=== PATIENT | male | born 1945 | race Caucasian/White ===

== ENCOUNTER → 2017-04-13 | Outpatient (CLI) | payer MEDICARE, OTHER ==
[2014-05-03 13:39] VITALS: BP 132/82
[~2017-04-13] MED LIST: BP MED; CEPHALEXIN500 M1 PO; KLOR-CON M2020 MEQ PO; METOPROLOL TART50 MG PO; NORCO 325 MG-51 TAB PO
[2017-04-13 08:17] LABS: HEMATOCRIT 48.4 % (42.0-52.0); MEAN CELL VOLUME 83 fl (78-100); MEAN CORPUSCULAR HEMOGLOBIN 26 pg (27-31); MEAN CORPUSCULAR HGB CONC 31 g/dL (33-37); PLATELET COUNT 269 K/mm3 (130-400); RED BLOOD COUNT 5.87 M/mm3 (4.20-5.60); RED CELL DISTRIBUTION WIDTH 16.6 % (11.5-14.5)
[2017-04-13 08:37] LABS: ALBUMIN 4.1 g/dL (3.5-5.0); BUN/CREATININE RATIO 15.4 (6.0-26.0); POTASSIUM 4.1 mmol/L (3.6-5.0); TOTAL BILIRUBIN 0.8 mg/dL (0.2-1.3); TOTAL PROTEIN 7.5 g/dL (6.3-8.2)
[2017-04-13 08:51] LABS: LYMPHOCYTE 74 % (20-51); MONOCYTE 4 % (3-10); NEUTROPHILS 20 % (42-75); WHITE BLOOD COUNT 22.9 K/mm3 (4.8-10.8)
== END ==
LOC: LAB 08:04
PROVIDERS: Nurse Practitioner Family
DX: C91.10 Chronic lymphocytic leukemia of B-cell type not having achieved remission (principal); I10 Essential (primary) hypertension; Z12.5 Encounter for screening for malignant neoplasm of prostate; Z13.220 Encounter for screening for lipoid disorders; Z91.041 Radiographic dye allergy status

== ENCOUNTER → 2018-12-16 | Outpatient (CLI) | payer MEDICARE, OTHER ==
[2014-05-03 13:39] VITALS: BP 132/82
[2018-12-16 11:37] LABS: HEMATOCRIT 47.6 % (42.0-52.0); HEMOGLOBIN 15.5 g/dL (13.5-18.0); MEAN CELL VOLUME 89 fl (78-100); MEAN CORPUSCULAR HEMOGLOBIN 29 pg (27-31); MEAN CORPUSCULAR HGB CONC 33 g/dL (33-37); MEAN PLATELET VOLUME 9.8 fl (7.4-10.4); PLATELET COUNT 252 K/mm3 (130-400); RED BLOOD COUNT 5.37 M/mm3 (4.20-5.60); RED CELL DISTRIBUTION WIDTH 18.3 % (11.5-14.5)
[2018-12-16 11:57] LABS: ALBUMIN 3.7 g/dL (3.4-4.8)
[2018-12-16 11:58] LABS: CALCIUM 9.2 mg/dL (8.3-10.5)
[2018-12-16 11:59] LABS: TOTAL PROTEIN 6.6 g/dL (6.2-8.1)
[2018-12-16 12:21] LABS: WHITE BLOOD COUNT 25.8 K/mm3 (4.8-10.8)
[2018-12-16 12:22] LABS: LYMPHOCYTE 70 % (20-51); MONOCYTE 3 % (3-10); NEUTROPHILS 27 % (42-75); OVALOCYTES 1+
== END ==
LOC: LAB 11:03
PROVIDERS: Family Medicine
DX: R56.9 Unspecified convulsions (principal); R51 Headache

== ENCOUNTER → 2020-04-13 | Outpatient (CLI) | payer MEDICARE, OTHER ==
[2014-05-03 13:39] VITALS: BP 132/82
[2020-04-13 13:47] LABS: HEMATOCRIT 45.8 % (42.0-52.0); MEAN CELL VOLUME 94 fl (78-100); MEAN CORPUSCULAR HEMOGLOBIN 31 pg (27-31); MEAN CORPUSCULAR HGB CONC 33 g/dL (33-37); MEAN PLATELET VOLUME 9.7 fl (7.4-10.4); PLATELET COUNT 253 K/mm3 (130-400); RED BLOOD COUNT 4.88 M/mm3 (4.20-5.60); RED CELL DISTRIBUTION WIDTH 14.4 % (11.5-14.5)
[2020-04-13 13:49] LABS: ALBUMIN 3.7 g/dL (3.4-4.8); POTASSIUM 3.6 mmol/L (3.5-5.1)
[2020-04-13 13:50] LABS: CALCIUM 9.1 mg/dL (8.3-10.5)
[2020-04-13 13:52] LABS: TOTAL PROTEIN 6.2 g/dL (6.2-8.1)
[2020-04-13 14:23] LABS: WHITE BLOOD COUNT 28.6 K/mm3 (4.8-10.8)
[2020-04-13 14:24] LABS: MONOCYTE 2 % (3-10); NEUTROPHILS 26 % (42-75)
[2020-04-13 14:26] LABS: LYMPHOCYTE 60 % (20-51)
== END ==
LOC: LAB 13:25
PROVIDERS: Family Medicine
DX: Z00.00 Encounter for general adult medical examination without abnormal findings (principal); E78.5 Hyperlipidemia, unspecified

== ENCOUNTER → 2020-07-28 | Outpatient (CLI) | payer MEDICARE, OTHER ==
[2014-05-03 13:39] VITALS: BP 132/82
[~2020-07-28] MED LIST changes: +FUROSEMIDE20 MG PO; +LOPRESSOR 550 MG/TAB PO; +NORVASC 10MG10 MG PO
[2020-07-28 10:40] LABS: HEMATOCRIT 48.3 % (42.0-52.0); HEMOGLOBIN 16.4 g/dL (13.5-18.0); MEAN CELL VOLUME 95 fl (78-100); MEAN CORPUSCULAR HEMOGLOBIN 32 pg (27-31); MEAN CORPUSCULAR HGB CONC 34 g/dL (33-37); MEAN PLATELET VOLUME 9.5 fl (7.4-10.4); PLATELET COUNT 221 K/mm3 (130-400); RED BLOOD COUNT 5.09 M/mm3 (4.20-5.60); RED CELL DISTRIBUTION WIDTH 13.1 % (11.5-14.5)
[2020-07-28 10:47] LABS: ALBUMIN 3.8 g/dL (3.4-4.8); POTASSIUM 3.8 mmol/L (3.5-5.1)
[2020-07-28 10:48] LABS: CALCIUM 9.4 mg/dL (8.3-10.5)
[2020-07-28 10:50] LABS: TOTAL PROTEIN 6.5 g/dL (6.2-8.1)
[2020-07-28 10:51] LABS: TOTAL BILIRUBIN 1.3 mg/dL (0.2-1.2)
[2020-07-28 10:54] LABS: WHITE BLOOD COUNT 26.7 K/mm3 (4.8-10.8)
[2020-07-28 10:55] LABS: LYMPHOCYTE 69 % (20-51); MONOCYTE 8 % (3-10); NEUTROPHILS 23 % (42-75)
== END ==
LOC: RAD 10:19
PROVIDERS: Nurse Practitioner
DX: R05 Cough (principal)

== ENCOUNTER → 2020-08-11 | Outpatient (CLI) | payer MEDICARE, OTHER ==
[2014-05-03 13:39] VITALS: BP 132/82
== END ==
LOC: VAS 08-10 09:51 → RAD 08-10 13:00 → VAS 09:49
DX: I50.9 Heart failure, unspecified (principal)

== ENCOUNTER 2020-10-13 16:53 | Emergency (ER) | payer MEDICARE, OTHER ==
[~2020-10-13 16:53] MED LIST changes: -FUROSEMIDE20 MG PO; -LOPRESSOR 550 MG/TAB PO; -NORVASC 10MG10 MG PO
[2020-10-13] MEDS ORDERED: FUROSEMIDE20 MG PO (17:11)
[2020-10-13] MEDS ORDERED: NORVASC 10MG10 MG PO (17:11)
[2020-10-13] MEDS ORDERED: LOPRESSOR 550 MG/TAB PO (17:11)
[2020-10-13 17:54] VITALS: BP 130/81
== END 2020-10-13 18:06 | disposition home or self-care (01) ==
LOC: ED 16:53
DX: M25.512 Pain in left shoulder (principal); I11.0 Hypertensive heart disease with heart failure; Z79.899 Other long term (current) drug therapy; W18.09XA Striking against other object with subsequent fall, initial encounter; Y92.242 Post office as the place of occurrence of the external cause

== ENCOUNTER → 2023-05-16 | Outpatient (CLI) | payer MEDICARE ==
[~2023-05-16] MED LIST changes: +FUROSEMIDE20 MG PO; +LOPRESSOR 550 MG/TAB PO; +NORVASC 10MG10 MG PO; +THORAZINE 225 MG/TAB PO
== END ==
LOC: AMSURD 16:02
DX: I48.91 Unspecified atrial fibrillation (principal)

== ENCOUNTER 2023-10-08 07:48 | Emergency (ER) | payer MEDICARE ==
[~2023-10-08] VITALS: Ht 172.7 cm; Wt 76.4 kg
[2023-10-08] MEDS ORDERED: Ibuprofen 200 MG TAB PO ONE (09:45)
[2023-10-08] MEDS ORDERED: NORCO 325 MG-51 TA1 PO (09:56)
[2023-10-08 10:14] VITALS: BP 109/80
== END 2023-10-08 10:17 | disposition home or self-care (01) ==
LOC: ED 07:48
DX: M25.511 Pain in right shoulder (principal); E66.9 Obesity, unspecified; Z68.25 Body mass index [BMI] 25.0-25.9, adult; W01.0XXA Fall on same level from slipping, tripping and stumbling without subsequent striking against object, initial encounter; Y93.01 Activity, walking, marching and hiking; Y92.009 Unspecified place in unspecified non-institutional (private) residence as the place of occurrence of the external cause

== ENCOUNTER 2024-02-09 18:01 | Observation (INO) | payer MEDICARE ==
[~2024-02-09] VITALS: Ht 172.7 cm; Wt 77.5 kg
[~2024-02-09 18:01] MED LIST changes: +NORCO 325 MG-51 TA1 PO
[2024-02-09] MEDS ORDERED: KAPSPARGO SPRIN50 MG PO (18:25)
[2024-02-09 18:43] LABS: HEMATOCRIT 36.6 % (42.0-52.0); HEMOGLOBIN 12.4 g/dL (13.5-18.0); MEAN CELL VOLUME 98 fl (78-100); MEAN CORPUSCULAR HEMOGLOBIN 33 pg (27-31); MEAN CORPUSCULAR HGB CONC 34 g/dL (33-37); MEAN PLATELET VOLUME 10.2 fl (7.4-10.4); PLATELET COUNT 182 K/mm3 (130-400); RED BLOOD COUNT 3.72 M/mm3 (4.20-5.60); RED CELL DISTRIBUTION WIDTH 14.3 % (11.5-14.5)
[2024-02-09 18:45] LABS: WHITE BLOOD COUNT 54.5 K/mm3 (4.8-10.8)
[2024-02-09 18:51] LABS: ALBUMIN 3.2 g/dL (3.4-4.8)
[2024-02-09 18:52] LABS: CALCIUM 8.2 mg/dL (8.3-10.5)
[2024-02-09 18:54] LABS: TOTAL PROTEIN 5.6 g/dL (6.2-8.1)
[2024-02-09 18:55] LABS: TOTAL BILIRUBIN 0.5 mg/dL (0.2-1.2)
[2024-02-09 19:11] LABS: NEUTROPHILS 13 % (42-75)
[2024-02-09 19:12] LABS: MONOCYTE 4 % (3-10)
[2024-02-09 19:13] LABS: SCHISTOCYTES 1+
[2024-02-09 19:15] LABS: LYMPHOCYTE 82 % (20-51)
[2024-02-09] MEDS ORDERED: NS & 20mEq KCl 1,000 ML IV SCH (19:45)
[2024-02-09] MEDS ORDERED: Pantoprazole 80 MG in NS 100 ML IV ONE (23:00)
[2024-02-09] MEDS ORDERED: 1/2 NS & 20 mEq KCl 1,000 ML IV SCH (23:15)
[2024-02-09] MEDS ORDERED: cefTRIAXone 1 G in Water For Injection,Sterile 10 ML IV ONE (23:15)
--- NOTE | 2024-02-09 23:18 | NUR ---
Tele placed per orders.
--- NOTE | 2024-02-09 23:30 | NUR ---
79 year old male patient admitted from ED observation via wheelchair to room 204 with DX of Hoarsenss, dysphagia,Hyponatremia (K level of 3.0). IVF's infuse at 200mls per hour. IV meds reviewed and administered by Uyen ARCOS to IV LFA. Patient assisted 1-2 assist to stand and ambulate short distance to bed. Denies pain at this time. Alert and oriented x 4. Forgetful and is poor historian, such as when and if had immunizations. Lives at home with his Heather. Patients feet are poorly cared for and has long thick nails, dirt in between toes. Patient is pleasant and visits readily with staff. Watches TV. Has emesis bag at bedside and frequently clears throat/clear phlemn.
[2024-02-09 23:38] VITALS: BP 124/87
[2024-02-09] MEDS ORDERED: HYDROcodone/Acetaminophen 7.5 MG-325 MG/15 ML Oral Soln PO PRN (23:45)
[2024-02-10 06:39] LABS: HEMATOCRIT 35.7 % (42.0-52.0); HEMOGLOBIN 12.2 g/dL (13.5-18.0); MEAN CELL VOLUME 97 fl (78-100); MEAN CORPUSCULAR HEMOGLOBIN 33 pg (27-31); MEAN CORPUSCULAR HGB CONC 34 g/dL (33-37); MEAN PLATELET VOLUME 9.8 fl (7.4-10.4); PLATELET COUNT 160 K/mm3 (130-400); RED BLOOD COUNT 3.67 M/mm3 (4.20-5.60); RED CELL DISTRIBUTION WIDTH 14.4 % (11.5-14.5)
[2024-02-10 06:50] LABS: CALCIUM 7.7 mg/dL (8.3-10.5)
--- NOTE | 2024-02-10 07:05 | NUR ---
REPORT RECIEVED FROM ISRRAEL PALMER. PATIENT LAYING IN BED WITH HOB ELEVATED, READING A BOOK. PATIENT DENIES PAIN OR DISCOMFORT AT THIS TIME. PATIENT ASKS "WHEN CAN I HAVE SOMETHING TO EAT OR DRINK" THIS NURSE INFORMED PATIENT THAT AT THIS TIME HE IS CONSIDERED NPO. PATIENT STATES UNDERSTANDING. PATIENT DENIES OTHER NEEDS OR COMPLAINTS AT THIS TIME. BED IN LOWEST LOCKED POSTION, CALL LIGHT WITHIN REACH.
[2024-02-10 07:10] LABS: WHITE BLOOD COUNT 49.6 K/mm3 (4.8-10.8)
--- NOTE | 2024-02-10 07:10 | NUR ---
CRITICAL WBC RECIEVED FROM LAB. PROVIDER NOTIFIED.
[2024-02-10 07:56] LABS: NEUTROPHILS 18 % (42-75)
[2024-02-10 07:58] LABS: LYMPHOCYTE 82 % (20-51)
--- NOTE | 2024-02-10 08:00 | NUR ---
PATIENT ASSITED TO BATHROOM WITH CANE BY THIS NURSE. PATIENT HAS UNSTEADY GAIT WITH CANE. THIS NURSE PROVIDED PATIENT WITH FRONT WHEELED WALKER. PATIENT ASSISTED TO CHIAR WITH WALKER AND GAITBELT, PATIENT MORE STEADY WITH WALKER. ASSESSMENT COMPLETE. PATIENT DENIES OTHER NEEDS OR COMPLAINTS AT THIS TIME. CALL LIGHT WITHIN REACH. AND SON PRESENT AT BEDSIDE.
[2024-02-10] MEDS ORDERED: amLODIPine 5 MG TAB PO SCH (09:00)
[2024-02-10] MEDS ORDERED: Metoprolol Tartrate 25 MG TAB PO SCH (09:00)
--- NOTE | 2024-02-10 09:00 | NUR ---
IV fluids completed.
--- NOTE | 2024-02-10 09:25 | NUR ---
PROVIDER IN TO SEE PATIENT AT THIS TIME. SONS ARIN AND SHELLIE, MARIA TERESA AT BEDSIDE. PATIENT VERBALIZED UNDERSTANDING.
[2024-02-10 10:16] VITALS: BP 100/71
[2024-02-10 14:20] VITALS: BP 126/76
[2024-02-10] MEDS ORDERED: cefTRIAXone 1 G in Water For Injection,Sterile 10 ML IV SCH (17:45)
[2024-02-10 18:05] VITALS: BP 106/70
--- NOTE | 2024-02-10 18:53 | NUR ---
REPORT GIVEN TO ISRRAEL PALMER
[2024-02-10 19:44] VITALS: BP 143/76
--- NOTE | 2024-02-10 20:15 | NUR ---
Patient resting in bed watching TV. Denies pain. HS med reviewed and taken whole does clear throat multiple times but states he was able to swallow med. Alert and oriented x 4.
--- NOTE | 2024-02-11 05:10 | NUR ---
Patient up to the bathroom with assist and back to bed. States "I guess so" to sleeping well this noc.
--- NOTE | 2024-02-11 06:09 | NUR ---
PATIENT HAS BEEN AWAKE THROUGH THE NIGHT. RESTS WITH EYES CLOSED AT THIS TIME.
[2024-02-11 08:02] VITALS: BP 140/101
[2024-02-11] MEDS ORDERED: Potassium Bicarbonate/Citrate 20 MEQ Effervescent TAB PO SCH (08:15)
[2024-02-11] MEDS ORDERED: predniSONE 20 MG TAB PO SCH (09:00)
[2024-02-11] MEDS ORDERED: Metoprolol Tartrate 50 MG TAB PO SCH (09:00)
[2024-02-11] MEDS ORDERED: amLODIPine 5 MG TAB PO SCH (09:00)
--- NOTE | 2024-02-11 09:00 | NUR ---
Pt is setting on bed. He states " I have to go home to take care of my , she has dementia." pt is pleasnt to care for. He is very concerned about having his home and not imposing on his son's family. He walks with walker but does not have one at home. His son is getting a walker today for him to have one at home. He is aware we recommended he stay due to swelling in throat.
--- NOTE | 2024-02-11 09:14 | NUR ---
clinicals sent to [facility]. [phone] fax #. Appointment is scheduled for ENT follow up 02/13/24 at 11:00 am MBS study no auth needed per [employer].
[2024-02-11] MEDS ORDERED: Cefdinir 125 MG/5 ML Oral Susp 100 ML BOTTLE PO SCH (09:15)
[2024-02-11] MEDS ORDERED: CEFDINIR125 MG/5 M PO (09:16)
[2024-02-11] MEDS ORDERED: PREDNISONE20 M1 PO (09:17)
--- NOTE | 2024-02-11 09:25 | NUR ---
[facility] [place] tomorrow 02/11/24 check in time is 7:15 am
--- NOTE | 2024-02-11 12:10 | NUR ---
pt. discharged via wheel chair and placed in car without incident. Seatbelt placed on pt.
== END 2024-02-11 12:10 | disposition home or self-care (01) ==
LOC: ED 18:01 → MED/SURG 23:00
PROVIDERS: ADMIT Family Medicine
DX: R13.10 Dysphagia, unspecified (principal); J39.2 Other diseases of pharynx; R49.0 Dysphonia; E87.1 Hypo-osmolality and hyponatremia; E87.6 Hypokalemia; I13.0 Hypertensive heart and chronic kidney disease with heart failure and stage 1 through stage 4 chronic kidney disease, or unspecified chronic kidney disease; N18.9 Chronic kidney disease, unspecified; I50.9 Heart failure, unspecified; C91.10 Chronic lymphocytic leukemia of B-cell type not having achieved remission; F03.90 Unspecified dementia, unspecified severity, without behavioral disturbance, psychotic disturbance, mood disturbance, and anxiety; Z87.891 Personal history of nicotine dependence
CPT/HCPCS: G0378; J0696; J2470; J3480; J7512

== ENCOUNTER → 2024-02-12 | Outpatient (CLI) | payer MEDICARE ==
[~2024-02-12] MED LIST changes: +CEFDINIR125 MG/5 M PO; +KAPSPARGO SPRIN50 MG PO; +PREDNISONE20 M1 PO
== END ==
LOC: RAD 07:12
DX: R13.10 Dysphagia, unspecified (principal); R05.9 Cough, unspecified

== ENCOUNTER → 2024-02-20 | Outpatient (CLI) | payer MEDICARE | LOC: RAD 11:00 | DX: I67.82 Cerebral ischemia (principal); I69.359 Hemiplegia and hemiparesis following cerebral infarction affecting unspecified side ==

== ENCOUNTER → 2024-02-27 | Outpatient (CLI) | payer MEDICARE | LOC: RAD 09:30 | DX: K40.90 Unilateral inguinal hernia, without obstruction or gangrene, not specified as recurrent (principal) ==

== ENCOUNTER 2024-04-26 13:04 | Inpatient (IN) | payer MEDICARE ==
[~2024-04-26] VITALS: Ht 172.7 cm; Wt 80.8 kg
[~2024-04-26 13:04] MED LIST changes: -CARDIZEM CD180 M1 PO; -FLUCONAZOLE50 MG PO; -JANTOVEN5 MG PO; -K-LOR20 MEQ/PKT PO; -POTASSIUM CHLO20 ME3 PO; -[UNRECOGNIZED DRUG - OTHER] MC
[2024-04-26] MEDS ORDERED: Furosemide 40 MG/4 ML VIAL IV SCH (13:26)
[2024-04-26] MEDS ORDERED: Potassium Bicarbonate/Citrate 20 MEQ Effervescent TAB PO SCH (13:26)
[2024-04-26] MEDS ORDERED: Naloxone 0.4 MG/ML VIAL IV PRN (13:30)
[2024-04-26] MEDS ORDERED: Acetaminophen 325 MG TAB PO PRN (13:30)
[2024-04-26] MEDS ORDERED: oxyCODONE 5 MG TAB PO PRN (13:30)
--- NOTE | 2024-04-26 13:30 | NUR ---
Arrived from Clinic, direct admit by PCP, Dr. Bhatt. Admitted to room 302, acute for edema to scrotum and BLE. Dr. Bhatt at nurses station with in person report. Presented to the walk in clinic today with pain to scrotum. Reports swelling, redness and excoriation to scrotum and penis. BLE edema +3 for past few months. Reports being compliant with medications at home. , Heather and son at bedside. Heather has hx of dementia. Encouraged to have family with when visiting. Prefers the name "Lemuel". Ambulated with walker from w/c to bed with SBA assist and gaitbelt. Agreed to shower. Soiled clothes removed and placed in bathroom. 1 assist with pericare and oral care. Reports feeling much better following shower. Minimal assist with dressing of clean gown and yellow non-skid socks. Ambulated 1:1 with gaitbelt and walker from restroom to bed. Provided patient and family with education regarding scrotal support. Tolerated it well. Medications administered, as ordered. Swallows pills whole with water. INT to left FA, patent, no redness or swelling. Flushed with 10ml NS. Plans to return home with following discharge. Bed in lowest and locked position. Call light within reach.
[2024-04-26] MEDS ORDERED: cefTRIAXone 1 G in Water For Injection,Sterile 10 ML IV SCH (14:00)
[2024-04-26 14:01] VITALS: BP 148/80
[2024-04-26 16:15] VITALS: BP 136/86
[2024-04-26] MEDS ORDERED: [UNRECOGNIZED DRUG - OTHER] MC (16:37)
[2024-04-26] MEDS ORDERED: K-LOR20 MEQ/PKT PO (16:38)
[2024-04-26] MEDS ORDERED: JANTOVEN5 MG PO (16:39)
[2024-04-26 16:44] LABS: PH-URINE 6.5 (5.0 - 8.0); URINE APPEARANCE SLIGHTLY CLOUDY (CLEAR); URINE COLOR YELLOW (YELLOW); URINE PROTEIN(semi-quant) NEGATIVE (NEGATIVE)
[2024-04-26 16:45] LABS: URINE BILIRUBIN NEGATIVE (NEGATIVE); URINE BLOOD TRACE-INTACT (NEGATIVE); URINE GLUCOSE NEGATIVE (NEGATIVE); URINE KETONE NEGATIVE (NEGATIVE); URINE LEUKOCYTE ESTERASE 1+ (NEGATIVE); URINE NITRATE NEGATIVE (NEGATIVE)
[2024-04-26] MEDS ORDERED: Miconazole 2% Topical Powder BOTTLE TP SCH (16:50)
--- NOTE | 2024-04-26 18:08 | NUR ---
Mod/High risk for thrombosis. Dr. Bhatt notified. Taking Coumadin and apply SCD, as ordered.
[2024-04-26 19:10] VITALS: BP 144/84
--- NOTE | 2024-04-26 19:39 | NUR ---
PT A&OX4. AMBULATES WITH WALKER AND STANDBY ASSIST. LUNGS CLEAR. ABD SOFT AND NON TENDER. SKIN WARM AND DRY. AFEBRILE. DENIES PAIN. 2100 MEDS GIVEN EARLY DUE TO PT HR-130, A-FIB ON MONITOR. METOPROLOL 50MG PO GIVEN. DR CISSE NOTIFIED. TEDHOSE ON.
[2024-04-26] MEDS ORDERED: Warfarin 5 MG TAB PO SCH (21:00)
[2024-04-26] MEDS ORDERED: Docusate Sodium 100 MG CAP PO SCH (21:00)
[2024-04-26] MEDS ORDERED: Metoprolol Tartrate 25 MG TAB PO SCH (21:00)
[2024-04-26 22:59] VITALS: BP 148/95
[2024-04-27] MEDS ORDERED: dilTIAZem 25 MG/5 ML VIAL IV ONE (01:00)
--- NOTE | 2024-04-27 01:06 | NUR ---
NOTIFIED DR NICK OF PT REMAINING IN A-FIB WITH RATE 120'S-150'S. PT DENIES PAIN. PT SLIGHTLY SOB WITH ACTIVITY. NEW ORDER OBTAINED. IV DILTIAZEM 10MG GIVEN ORDERED.
[2024-04-27 02:34] VITALS: BP 134/92
[2024-04-27] MEDS ORDERED: dilTIAZem 30 MG TAB PO SCH (06:00)
--- NOTE | 2024-04-27 07:00 | NUR ---
RESUMED CARE FROM ISRRAEL CASIANO.
[2024-04-27 07:36] LABS: BASO # 0.07 K/mm3 (0.02-0.10); EOS # 0.12 K/mm3 (0.04-0.40); EOS % 0.4 % (0.0-4.0); HEMATOCRIT 34.6 % (42.0-52.0); HEMOGLOBIN 11.1 g/dL (13.5-18.0); LYMPH# 26.59 K/mm3 (1.50-4.00); MEAN CELL VOLUME 98 fl (78-100); MEAN CORPUSCULAR HEMOGLOBIN 31 pg (27-31); MEAN CORPUSCULAR HGB CONC 32 g/dL (33-37); MEAN PLATELET VOLUME 9.8 fl (7.4-10.4); MONO # 1.08 K/mm3 (0.20-0.80); NEU # 4.88 K/mm3 (1.40-6.50); PLATELET COUNT 227 K/mm3 (130-400); RED BLOOD COUNT 3.55 M/mm3 (4.20-5.60); RED CELL DISTRIBUTION WIDTH 13.5 % (11.5-14.5)
[2024-04-27 07:39] VITALS: BP 119/66
[2024-04-27 07:39] LABS: WHITE BLOOD COUNT 32.8 K/mm3 (4.8-10.8)
[2024-04-27 07:46] LABS: CALCIUM 8.1 mg/dL (8.3-10.5)
[2024-04-27 07:47] LABS: TOTAL PROTEIN 5.3 g/dL (6.2-8.1)
[2024-04-27 07:49] LABS: TOTAL BILIRUBIN 0.8 mg/dL (0.2-1.2)
--- NOTE | 2024-04-27 08:45 | NUR ---
PATIENT SITTING IN RECLINER UPON ARRIVAL TO ROOM. A&0X4. DENIES CURRENT PAIN. EDEMA REMAINS IN BLE AND SCROTOM. PATIENT REPORTS IMPROVEMENT IN SWELLING TO SCROTOM. POWDER APPLIED BY THIS RN. WARMTH AND REDNESS NOTED TO BILATERAL MEDIAL THIGHS. ASSESSMENT COMPLETED. AM MEDICATIONS PROVIDED BY ISRRAEL TOMAS. PATIENT REMAINS TACHYCARDIC, A-FIB. HARD OF HEARING, NO HEARING AIDS. NO COMPLAINTS AT THIS TIME. PATIENT REMAINS IN RECLINER, ALARMED, CALL LIGHT WITHIN REACH FILLING OUT MEAL MENUS.
[2024-04-27] MEDS ORDERED: amLODIPine 5 MG TAB PO SCH (09:00)
--- NOTE | 2024-04-27 10:36 | NUR ---
PATIENT REQUESTING TO BE DISCHARGED HOME. THIS RN ENCOURAGED PATIENT TO REMAIN AND CONTINUE WITH TREATMENT AND FURTHER IMAGING THIS WEEK. PATIENT AGREEABLE AT THIS TIME.
[2024-04-27 11:23] VITALS: BP 126/71
--- NOTE | 2024-04-27 14:00 | NUR ---
POCKET KNIFE FOUND IN ROOM, PATIENT EDUCATED ON NEED OF REMOVAL OF PERSONAL ITEM FROM ROOM. PATIENT IRRITATED BUT AGREEABLE. PERSONAL ITEM IN MED ROOM AT THIS TIME.
--- NOTE | 2024-04-27 14:32 | NUR ---
POCKET KNIFE PROVIDED TO CHRISTINA TO TAKE HOME AT THIS TIME.
[2024-04-27 15:25] VITALS: BP 136/82
--- NOTE | 2024-04-27 18:43 | NUR ---
REPORT TO JOJO BETH.
[2024-04-27 19:00] VITALS: BP 135/80
--- NOTE | 2024-04-27 19:10 | NUR ---
Report received from Penny Gamino RN. Patient sitting up in recliner reading [employer] book. A/O x4. [place]. Denies pain, SOA or cough. TELE in place HR irregular, rate 110's. Lungs CTA. Swelling remains to testicular area and LE. Patient reports testicular area improved. Assessment completed. Denies questions wants or needs. Chair alarm on. Call light in reach.
--- NOTE | 2024-04-27 19:45 | NUR ---
Lab calls and questions about culture ordered yesterday, states not logged or collected. Per report from previous shift culture pending. Patient has applied his powder to groin, testicular area tonight. Eneida MADDEN notified, states to wait until tomorrow and speak with Dr. Bhatt regarding need for culture.
[2024-04-27 22:45] VITALS: BP 129/85
--- NOTE | 2024-04-27 23:56 | NUR ---
Up to BR with 1:1 assist to void. Voiding pale yellow urine. Assisted back to bed. Scheduled PO cardizem taken at this time. Denies pain or needs. Bed alarm on. Call light in reach.
[2024-04-28 03:19] VITALS: BP 117/72
--- NOTE | 2024-04-28 05:45 | NUR ---
Awake all night reading books. Up to BR several times to void. IV Lasix time changed to help accomidate sleeping. Patient without complaints of pain.
--- NOTE | 2024-04-28 07:04 | NUR ---
Report to Jessica ARCOS.
[2024-04-28 07:24] VITALS: BP 103/68
[2024-04-28] MEDS ORDERED: Furosemide 40 MG/4 ML VIAL IV SCH (08:00)
[2024-04-28 10:19] LABS: HEMATOCRIT 35.5 % (42.0-52.0); HEMOGLOBIN 11.2 g/dL (13.5-18.0); MEAN CELL VOLUME 98 fl (78-100); MEAN CORPUSCULAR HEMOGLOBIN 31 pg (27-31); MEAN CORPUSCULAR HGB CONC 32 g/dL (33-37); MEAN PLATELET VOLUME 9.6 fl (7.4-10.4); PLATELET COUNT 232 K/mm3 (130-400); RED BLOOD COUNT 3.61 M/mm3 (4.20-5.60); RED CELL DISTRIBUTION WIDTH 13.7 % (11.5-14.5)
[2024-04-28 10:21] LABS: WHITE BLOOD COUNT 33.6 K/mm3 (4.8-10.8)
--- NOTE | 2024-04-28 10:21 | NUR ---
PROVIDOR NOTFIED OF WBC OF 33.6.
[2024-04-28 10:23] LABS: ALBUMIN 3.1 g/dL (3.4-4.8)
[2024-04-28 10:25] LABS: CALCIUM 8.2 mg/dL (8.3-10.5)
[2024-04-28 10:26] LABS: TOTAL PROTEIN 5.6 g/dL (6.2-8.1)
[2024-04-28 10:28] LABS: TOTAL BILIRUBIN 0.5 mg/dL (0.2-1.2)
[2024-04-28] MEDS ORDERED: dilTIAZem 30 MG TAB PO ONE (10:45)
[2024-04-28 10:58] LABS: LYMPHOCYTE 74 % (20-51); MONOCYTE 5 % (3-10); NEUTROPHILS 21 % (42-75)
[2024-04-28 11:00] VITALS: BP 107/67
[2024-04-28] MEDS ORDERED: dilTIAZem 30 MG TAB PO SCH ×2 (12:00→21:00)
[2024-04-28 15:00] VITALS: BP 128/75
--- NOTE | 2024-04-28 19:10 | NUR ---
Report received from Jessica ARCOS. Patient rests supine in bed reading a book. A/O x4. States having some L knee pain 08/02. Reports arthritis. Tylenol given at this time. TELE in place. HR remains irregular in the . Lungs CTA. INT patent to LFA, flushed easily with 10 ML of NS. Red dry rash continues to bilateral upper thighs and groin region with swelling noted to scrotal area. No drainage noted. Reviewed medications and POC. Patient offers no questions except "when am I going to get out of here" Remainded of testicular US scheduled tomorrow. Bed alarm on. Call light in reach.
[2024-04-28 19:37] VITALS: BP 139/85
--- NOTE | 2024-04-28 22:20 | NUR ---
Set off bed alarm. Up and ambulating in browning with UNIVERSITY ADMINISTRATOR. HR up to 120's with ambulation. Confused on time of day. Reoriented to night time vs day time as he thought. Assisted back to bed.
[2024-04-28 23:09] VITALS: BP 91/59
[2024-04-29 03:39] VITALS: BP 115/64
--- NOTE | 2024-04-29 05:05 | NUR ---
Rested better this night then last with no complaints. HR 80's while sleeping, 110's when up to BR. AM medication taken at this time.
[2024-04-29 05:51] LABS: HEMATOCRIT 33.9 % (42.0-52.0); HEMOGLOBIN 10.7 g/dL (13.5-18.0); MEAN CELL VOLUME 98 fl (78-100); MEAN CORPUSCULAR HEMOGLOBIN 31 pg (27-31); MEAN CORPUSCULAR HGB CONC 32 g/dL (33-37); MEAN PLATELET VOLUME 9.4 fl (7.4-10.4); PLATELET COUNT 214 K/mm3 (130-400); RED BLOOD COUNT 3.46 M/mm3 (4.20-5.60); RED CELL DISTRIBUTION WIDTH 13.5 % (11.5-14.5)
[2024-04-29 06:00] LABS: ALBUMIN 2.9 g/dL (3.4-4.8)
--- NOTE | 2024-04-29 06:00 | NUR ---
Up in recliner per request. Request to go on walk. SERVICE OBSERVER CHIEF in room to accompany.
[2024-04-29 06:01] LABS: CALCIUM 7.9 mg/dL (8.3-10.5)
[2024-04-29 06:02] LABS: TOTAL PROTEIN 5.2 g/dL (6.2-8.1)
[2024-04-29 06:04] LABS: TOTAL BILIRUBIN 0.3 mg/dL (0.2-1.2)
[2024-04-29 06:27] LABS: WHITE BLOOD COUNT 31.6 K/mm3 (4.8-10.8)
--- NOTE | 2024-04-29 06:29 | NUR ---
WBC critical value of 31 was called to Blank MADDEN.
[2024-04-29 06:49] LABS: LYMPHOCYTE 78 % (20-51); MONOCYTE 5 % (3-10); NEUTROPHILS 16 % (42-75)
--- NOTE | 2024-04-29 06:55 | NUR ---
Report to Jessica ARCOS.
[2024-04-29 07:16] VITALS: BP 119/71
[2024-04-29 08:29] LABS: PROTHROMBIN TIME 24.4 SECONDS (9.0-12.0)
--- NOTE | 2024-04-29 10:03 | NUR ---
Spoke with patient about discharge plans and his plans to return home. Pt reports he has a front wheeled walker he uses. Pt denies needing home health. Reports he is not home bound. Anxious to return home to assist . Community resources provided. Information given for patient to call [facility] for them to come out to do an assessment for him and his as well. To offer them both assistance in the home.
[2024-04-29 10:55] VITALS: BP 119/61
[2024-04-29] MEDS ORDERED: LOPRESSOR 550 MG/TAB PO (11:49)
[2024-04-29] MEDS ORDERED: CARDIZEM CD180 M1 PO (11:49)
[2024-04-29] MEDS ORDERED: POTASSIUM CHLO20 ME3 PO (11:52)
[2024-04-29] MEDS ORDERED: FLUCONAZOLE50 MG PO (11:54)
--- NOTE | 2024-04-29 14:48 | NUR ---
DISCHARGE INSTRUCTIONS REVIEWED WITH PATIENT. HE VOICED UNDERSTANDING. BELONGINGS SENT HOME WITH PATIENT. GLASSES AND CLOTHING. SON AND PATIENT ARRIVED TO CURRENCY COUNTER PATIENT. DISCHARGE INSTRUCTIONS REVIEWED WITH SON. SON VOICED UNDERSTANDING. PATIENT WAS ASSISTED TO VEHICLE VIA WHEELCHAIR BY STAFF. MICONAZOLE SENT HOME WITH PATIENT.
[2024-04-29 14:52] VITALS: BP 104/57
[2024-04-30] MEDS ORDERED: dilTIAZem CD 180 MG CAP PO SCH (09:00)
== END 2024-04-29 14:53 | disposition home or self-care (01) | DRG 291 ==
LOC: MED/SURG 13:04
PROVIDERS: Physician Assistant; ADMIT Family Medicine
DX: I11.0 Hypertensive heart disease with heart failure (principal); I50.23 Acute on chronic systolic (congestive) heart failure; I48.19 Other persistent atrial fibrillation; N17.9 Acute kidney failure, unspecified; C91.10 Chronic lymphocytic leukemia of B-cell type not having achieved remission; B37.2 Candidiasis of skin and nail; F01.50 Vascular dementia, unspecified severity, without behavioral disturbance, psychotic disturbance, mood disturbance, and anxiety; M19.90 Unspecified osteoarthritis, unspecified site; Z79.01 Long term (current) use of anticoagulants; Z79.891 Long term (current) use of opiate analgesic
CPT/HCPCS: J0696; J1940

== ENCOUNTER → 2024-04-26 | Outpatient (CLI) | payer MEDICARE ==
[~2024-04-26] MED LIST changes: +CARDIZEM CD180 M1 PO; +FLUCONAZOLE50 MG PO; +JANTOVEN5 MG PO; +K-LOR20 MEQ/PKT PO; +POTASSIUM CHLO20 ME3 PO; +[UNRECOGNIZED DRUG - OTHER] MC
[2024-04-26 12:16] LABS: HEMATOCRIT 36.4 % (42.0-52.0); HEMOGLOBIN 11.5 g/dL (13.5-18.0); MEAN CELL VOLUME 98 fl (78-100); MEAN CORPUSCULAR HEMOGLOBIN 31 pg (27-31); MEAN CORPUSCULAR HGB CONC 32 g/dL (33-37); MEAN PLATELET VOLUME 9.9 fl (7.4-10.4); PLATELET COUNT 241 K/mm3 (130-400); RED BLOOD COUNT 3.72 M/mm3 (4.20-5.60); RED CELL DISTRIBUTION WIDTH 13.6 % (11.5-14.5)
[2024-04-26 12:24] LABS: ALBUMIN 3.1 g/dL (3.4-4.8)
[2024-04-26 12:25] LABS: CALCIUM 8.1 mg/dL (8.3-10.5)
[2024-04-26 12:27] LABS: TOTAL PROTEIN 5.5 g/dL (6.2-8.1)
[2024-04-26 12:28] LABS: TOTAL BILIRUBIN 0.9 mg/dL (0.2-1.2)
[2024-04-26 12:41] LABS: PROTHROMBIN TIME 21.5 SECONDS (9.0-12.0)
[2024-04-26 16:41] LABS: LYMPHOCYTE 80 % (20-51); NEUTROPHILS 20 % (42-75)
== END ==
LOC: RAD 11:58
PROVIDERS: Family Medicine
DX: I11.0 Hypertensive heart disease with heart failure (principal); I50.20 Unspecified systolic (congestive) heart failure; N50.819 Testicular pain, unspecified; Z79.01 Long term (current) use of anticoagulants; E78.5 Hyperlipidemia, unspecified

== ENCOUNTER → 2024-05-02 | Outpatient (CLI) | payer MEDICARE ==
[~2024-05-02] MED LIST changes: +CARDIZEM CD180 M1 PO; +FLUCONAZOLE50 MG PO; +JANTOVEN5 MG PO; +K-LOR20 MEQ/PKT PO; +POTASSIUM CHLO20 ME3 PO; +[UNRECOGNIZED DRUG - OTHER] MC
[2024-05-02 12:24] LABS: ALBUMIN 3.3 g/dL (3.4-4.8)
[2024-05-02 12:25] LABS: CALCIUM 8.7 mg/dL (8.3-10.5)
[2024-05-02 12:27] LABS: TOTAL PROTEIN 5.9 g/dL (6.2-8.1)
[2024-05-02 12:28] LABS: TOTAL BILIRUBIN 0.6 mg/dL (0.2-1.2)
== END ==
LOC: LAB 11:56
PROVIDERS: Nurse Practitioner
DX: I50.9 Heart failure, unspecified (principal)

== ENCOUNTER 2024-05-05 10:20 | Emergency (ER) | payer MEDICARE ==
[~2024-05-05] VITALS: Ht 172.7 cm; Wt 96.8 kg
[2024-05-05 10:43] LABS: HEMATOCRIT 35.1 % (42.0-52.0); HEMOGLOBIN 11.3 g/dL (13.5-18.0); MEAN CELL VOLUME 94 fl (78-100); MEAN CORPUSCULAR HEMOGLOBIN 30 pg (27-31); MEAN CORPUSCULAR HGB CONC 32 g/dL (33-37); MEAN PLATELET VOLUME 10.1 fl (7.4-10.4); PLATELET COUNT 238 K/mm3 (130-400); RED BLOOD COUNT 3.75 M/mm3 (4.20-5.60); RED CELL DISTRIBUTION WIDTH 13.3 % (11.5-14.5)
[2024-05-05 10:47] LABS: WHITE BLOOD COUNT 34.3 K/mm3 (4.8-10.8)
[2024-05-05 10:50] LABS: ALBUMIN 3.2 g/dL (3.4-4.8); SODIUM 131 mmol/L (136-145)
[2024-05-05 10:51] LABS: GLUCOSE 91 mg/dL (75-110); TOTAL PROTEIN 5.8 g/dL (6.2-8.1)
[2024-05-05 10:52] LABS: CALCIUM 8.9 mg/dL (8.3-10.5)
[2024-05-05 10:53] LABS: TOTAL BILIRUBIN 0.6 mg/dL (0.2-1.2)
[2024-05-05 10:54] LABS: CARBON DIOXIDE 18 mmol/L (23-31)
[2024-05-05 10:56] LABS: AST-SGOT 31 U/L (5-34)
[2024-05-05 10:57] LABS: ALT/SGPT 20 U/L (0-55)
[2024-05-05] MEDS ORDERED: Piperacillin/Tazobactam Sodium 4.5 GM in Water For Injection,Sterile 20 ML IV ONE ×2 (11:00→11:30)
[2024-05-05] MEDS ORDERED: Piperacillin/Tazobactam Sodium 4.5 GM in NS 100 ML IV SCH ×2 (11:00→13:00)
[2024-05-05 11:03] LABS: PROTHROMBIN TIME 68.3 SECONDS (9.0-12.0)
[2024-05-05 11:05] LABS: TROPONIN-I < 0.030 ng/mL (0.00-0.033)
[2024-05-05] MEDS ORDERED: NS 1,000 ML IV SCH (11:15)
[2024-05-05 11:21] LABS: LYMPHOCYTE 65 % (20-51); MONOCYTE 4 % (3-10); NEUTROPHILS 30 % (42-75)
[2024-05-05] MEDS ORDERED: NS 500 ML IV SCH (12:00)
[2024-05-05] MEDS ORDERED: Atropine Sulfate 1 MG/10 ML SYRINGE IV ONE (12:15)
[2024-05-05] MEDS ORDERED: DOPamine/Dextrose 5%-Water 250 ML IV ONE (12:15)
[2024-05-05] MEDS ORDERED: EPINEPHrine 2 MG in D5W 100 ML IV ONE (12:30)
[2024-05-05 13:33] LABS: URINE APPEARANCE SLIGHTLY CLOUDY (CLEAR); URINE BILIRUBIN NEGATIVE (NEGATIVE); URINE BLOOD TRACE-INTACT (NEGATIVE); URINE COLOR YELLOW (YELLOW); URINE GLUCOSE NEGATIVE (NEGATIVE); URINE KETONE NEGATIVE (NEGATIVE); URINE LEUKOCYTE ESTERASE TRACE (NEGATIVE); URINE NITRATE NEGATIVE (NEGATIVE); URINE PROTEIN(semi-quant) TRACE (NEGATIVE)
[2024-05-05 13:34] LABS: URINE MUCUS PRESENT (NOT PRESENT)
[2024-05-05 13:37] VITALS: BP 110/99
[2024-05-06] MEDS ORDERED: Piperacillin/Tazobactam Sodium 4.5 GM in NS 100 ML IV SCH (11:00)
== END 2024-05-05 13:45 | disposition short-term general hospital (02) ==
LOC: ED 10:20
PROVIDERS: Family Medicine
DX: R57.0 Cardiogenic shock (principal); I95.9 Hypotension, unspecified; N17.9 Acute kidney failure, unspecified; D72.829 Elevated white blood cell count, unspecified; I50.20 Unspecified systolic (congestive) heart failure; R00.1 Bradycardia, unspecified; E66.9 Obesity, unspecified; R79.89 Other specified abnormal findings of blood chemistry; R20.2 Paresthesia of skin; Z79.01 Long term (current) use of anticoagulants
CPT/HCPCS: J0461; J1265; J2543; J7030

== ENCOUNTER 2024-06-10 11:17 | Emergency (ER) | payer MEDICARE ==
[~2024-06-10] VITALS: Ht 177.8 cm; Wt 90.2 kg
[~2024-06-10 11:17] MED LIST changes: -FUROSEMIDE20 MG PO; +LASIX40 M1 PO
[2024-06-10] MEDS ORDERED: ELIQUIS2.5 MG PO (11:32)
[2024-06-10] MEDS ORDERED: TIADYLT ER120 MG PO (11:35)
[2024-06-10 11:40] LABS: HEMATOCRIT 37.8 % (42.0-52.0); HEMOGLOBIN 11.4 g/dL (13.5-18.0); MEAN CELL VOLUME 93 fl (78-100); MEAN CORPUSCULAR HEMOGLOBIN 28 pg (27-31); MEAN CORPUSCULAR HGB CONC 30 g/dL (33-37); PLATELET COUNT 183 K/mm3 (130-400); RED BLOOD COUNT 4.05 M/mm3 (4.20-5.60); RED CELL DISTRIBUTION WIDTH 15.6 % (11.5-14.5)
[2024-06-10] MEDS ORDERED: PANTOPRAZOLE SO40 MG PO (11:40)
[2024-06-10] MEDS ORDERED: POTASSIUM CHLO20 ME4 PO (11:41)
[2024-06-10] MEDS ORDERED: VALACYCLOVIR1 GM PO (11:42)
[2024-06-10 11:44] LABS: ALBUMIN 3.2 g/dL (3.4-4.8); SODIUM 139 mmol/L (136-145)
[2024-06-10 11:45] LABS: CALCIUM 9.1 mg/dL (8.3-10.5)
[2024-06-10 11:46] LABS: GLUCOSE 92 mg/dL (75-110)
[2024-06-10 11:48] LABS: CARBON DIOXIDE 31 mmol/L (23-31); TOTAL BILIRUBIN 0.5 mg/dL (0.2-1.2)
[2024-06-10 11:49] LABS: WHITE BLOOD COUNT 34.5 K/mm3 (4.8-10.8)
[2024-06-10 11:52] LABS: AST-SGOT 25 U/L (5-34)
[2024-06-10 11:53] LABS: ALT/SGPT 24 U/L (0-55)
[2024-06-10 12:03] LABS: TROPONIN-I < 0.030 ng/mL (0.00-0.033)
[2024-06-10 12:19] LABS: LYMPHOCYTE 26 % (20-51); METAMYELOCYTE 18 % (0-0); MONOCYTE 8 % (3-10); MYELOCYTE 30 % (0-0); NEUTROPHILS 18 % (42-75)
[2024-06-10 12:21] LABS: RSV RAPID MOLECULAR IN HOUSE NEGATIVE (NEGATIVE)
[2024-06-10] MEDS ORDERED: Albuterol/Ipratropium 3 MG-0.5 MG/3 ML Neb Soln IH ONE (12:30)
[2024-06-10] MEDS ORDERED: cefTRIAXone 1 G in Water For Injection,Sterile 10 ML IV ONE (12:45)
[2024-06-10] MEDS ORDERED: Azithromycin 500 MG in NS 250 ML IV ONE (12:45)
[2024-06-10] MEDS ORDERED: methylPREDNISolone Sod Succ 125 MG/2 ML VIAL IV ONE (12:45)
[2024-06-10] MEDS ORDERED: NS 1,000 ML IV SCH (15:15)
[2024-06-10 16:20] VITALS: BP 95/66
== END 2024-06-10 16:20 | disposition short-term general hospital (02) ==
LOC: ED 11:17
PROVIDERS: Physician Assistant
DX: J96.02 Acute respiratory failure with hypercapnia (principal); J96.01 Acute respiratory failure with hypoxia; J18.9 Pneumonia, unspecified organism; E66.9 Obesity, unspecified; Z68.28 Body mass index [BMI] 28.0-28.9, adult
CPT/HCPCS: A4618; J0456; J0696; J2919; J7030; J7050